=== PATIENT | male | born 1950 | race American Indian/Alaskan Native ===

== ENCOUNTER 2019-02-24 11:59 | Emergency (ER) | payer MEDICARE ==
--- NOTE | 2019-02-24 12:13 | Event Note ---
ED Screening Note Date of service: 02/24/19 Time: 12:11 ED Screening Note: 68 y/o male comes in for "not able to urinate" since 5am. He is followed by a urologist in [place]. This initial assessment/diagnostic orders/clinical plan/treatment(s) is/are subject to change based on patients health status, clinical progression and re- assessment by fellow clinical providers in the ED. Further treatment and workup at subsequent clinical providers discretion. Patient/guardian urged not to elope from the ED as their condition may be serious if not clinically assessed and managed. Initial orders include:
[2019-02-24 13:21] LABS: Eosinophils # (Auto) 0.1 K/mm3 (0.0-0.4); Eosinophils % (Auto) 1.6 % (0.0-4.3); Hematocrit 40.4 % (35.5-45.6); Hemoglobin 13.2 gm/dl (11.8-15.2); Lymphocytes % (Auto) 23.5 % (13.4-35.0); Mean Corpuscular HGB Conc 33 % (32-34); Mean Corpuscular Volume 76 fl (84-94); Monocytes # (Auto) 0.3 K/mm3 (0.0-0.8); Monocytes % (Auto) 6.7 % (0.0-7.3); Platelet Count 225 K/mm3 (140-440); Red Cell Distribution Width 14.9 % (13.2-15.2)
[2019-02-24 13:39] LABS: Alanine Aminotransferase 26 units/L (7-56); Albumin 4.8 g/dL (3.9-5); BUN/Creatinine Ratio 11; Blood Urea Nitrogen 11 mg/dL (9-20); Calcium 9.3 mg/dL (8.4-10.2); Hemolysis Index 7
[2019-02-24 13:50] LABS: Bilirubin,Urine NEG (Negative); Blood,Urine SM (Negative); Color,Urine Yellow (Yellow); Mucus,Urine FEW /HPF; Protein,Urine <15 mg/dL mg/dL (Negative); Urobilinogen,Urine < 2.0 mg/dL (<2.0); WBC,Urine < 1.0 /HPF (0.0-6.0)
--- NOTE | 2019-02-24 14:27 | Emergency Department Report ---
ED Male HPI - General Chief complaint: Urogenital-Male Stated complaint: CANT URINATE Time Seen by Provider: 02/24/19 12:11 Source: patient Mode of arrival: Ambulatory Limitations: No Limitations - History of Present Illness Initial comments: 68-year-old -Finnish male patient with history of BPH complains of sudden onset of urinary retention x 5 AM this morning. He denies dysuria, hematuria, preceding abdominal pain or flank pain, back pain/injury to back, constipation/fecal incontinence, or fever. Patient does follow with Dr. Weiss, urology-has a follow-up in 3 weeks for a recently elevated PSA. However patient does deny a history of prostate cancer. MD Complaint: other -: Sudden Radiation: none Severity scale (0 -10): 10 Quality: aching Consistency: constant Improves with: none Worsens with: none urinary retention. denies: discharge - Related Data Home Medications Medication Instructions Recorded Confirmed Last Taken Aspirin EC 325 mg PO QDAY 06/14/15 06/14/15 06/14/15 05:35 325 mg Saw [place] 1 cap PO DAILY 06/14/15 06/14/15 06/13/15 1 cap Ubidecarenone [Coq-10] 100 mg PO DAILY 06/14/15 06/14/15 06/14/15 100 mg Vit D3-Vit K/Berber[place]/Hops 1 tab PO DAILY 06/14/15 06/14/15 06/13/15 [Ostera Tablet] 1 tab Allergies Allergy/AdvReac Type Severity Reaction Status Date / Time No Known Allergies Allergy Verified 06/14/15 07:11 ED Review of Systems ROS: Stated complaint: CANT URINATE Other details as noted in HPI Comment: All other systems reviewed and negative Genitourinary: as per HPI. denies: frequency, testicular pain, testicular mass ED Past Medical Hx - Past Medical History Previous Medical History?: Yes Hx Hypertension: No Hx Diabetes: No Hx Liver Disease: No Hx Arthritis: Yes - Social History Smoking Status: Never Smoker Substance Use Type: Alcohol - Medications Home Medications: Home Medications Medication Instructions Recorded Confirmed Last Taken Type Aspirin EC 325 mg PO QDAY 06/14/15 06/14/15 06/14/15 05:35 History 325 mg Saw [place] 1 cap PO DAILY 01/29/16 01/29/16 01/28/16 History 1 cap Ubidecarenone [Coq-10] 100 mg PO DAILY 06/14/15 06/14/15 06/14/15 History 100 mg Vit D3-Vit K/[place]/Hops 1 tab PO DAILY 06/14/15 06/14/15 06/13/15 History [Ostera Tablet] 1 tab ED Physical Exam - General Limitations: No Limitations General appearance: alert, in no apparent distress - Head Head exam: Present: atraumatic, normocephalic - Eye Eye exam: Present: normal appearance - Respiratory Respiratory exam: Present: normal lung sounds bilaterally - Cardiovascular Cardiovascular Exam: Present: regular rate, normal rhythm - GI/Abdominal GI/Abdominal exam: Present: soft. Absent: distended, tenderness (no tenderness or pain post garcia insertion ), guarding, rebound, rigid - Extremities Exam Extremities exam: Present: normal inspection - Back Exam Back exam: Present: normal inspection, full ROM. Absent: tenderness, CVA tender ness (L), vertebral tenderness - Neurological Exam Neurological exam: Present: alert, oriented X3 ED Course Vital Signs 02/24/19 12:11 Temperature 97.8 F Pulse Rate 104 H Respiratory 18 Rate Blood Pressure 169/96 O2 Sat by Pulse 99 Oximetry ED Medical Decision Making - Lab Data Result diagrams: 02/24/19 12:51 02/24/19 12:44 Lab Results 02/24/19 02/24/19 02/24/19 Range/Units 12:44 12:51 13:08 WBC 4.3 L (4.5-11.0) K/mm3 RBC 5.30 H (3.65-5.03) M/mm3 Hgb 13.2 (11.8-15.2) gm/dl Hct 40.4 (35.5-45.6) % MCV 76 L (84-94) fl MCH 25 L (28-32) pg MCHC 33 (32-34) % RDW 14.9 (13.2-15.2) % Plt Count 225 (140-440) K/mm3 Lymph % (Auto) 23.5 (13.4-35.0) % [place] % (Auto) 6.7 (0.0-7.3) % Eos % (Auto) 1.6 (0.0-4.3) % Baso % (Auto) 1.0 (0.0-1.8) % Lymph # 1.0 L (1.2-5.4) K/mm3 [place] # 0.3 (0.0-0.8) K/mm3 Eos # 0.1 (0.0-0.4) K/mm3 Baso # 0.0 (0.0-0.1) K/mm3 Seg Neutrophils % 67.2 (40.0-70.0) % Seg Neutrophils # 2.9 (1.8-7.7) K/mm3 Sodium 140 (137-145) mmol/L Potassium 4.5 (3.6-5.0) mmol/L Chloride 101.2 (98-107) mmol/L Carbon Dioxide 24 (22-30) mmol/L Anion Gap 19 mmol/L BUN 11 (9-20) mg/dL Creatinine 1.0 (0.8-1.5) mg/dL Estimated GFR > 60 ml/min BUN/Creatinine Ratio 11 % Glucose 152 H (75-100) mg/dL Calcium 9.3 (8.4-10.2) mg/dL Total Bilirubin 0.40 (0.1-1.2) mg/dL AST 22 (5-40) units/L ALT 26 (7-56) units/L Alkaline Phosphatase 74 (35-129) units/L Total Protein 8.3 H (6.3-8.2) g/dL Albumin 4.8 (3.9-5) g/dL Albumin/Globulin Ratio 1.4 % Urine Color Yellow (Yellow) Urine Turbidity Clear (Clear) Urine pH 5.0 (5.0-7.0) Ur Specific [place] 1.011 (1.003-1.030) Urine Protein <15 mg/dl (Negative) mg/dL Urine Glucose (UA) Neg (Negative) mg/dL Urine Ketones Neg (Negative) mg/dL Urine Blood Sm (Negative) Urine Nitrite Neg (Negative) Urine Bilirubin Neg (Negative) Urine Urobilinogen < 2.0 (<2.0) mg/dL Ur Leukocyte Esterase Neg (Negative) Urine WBC (Auto) < 1.0 (0.0-6.0) /HPF Urine RBC (Auto) 1.0 (0.0-6.0) /HPF Urine Mucus Few /HPF - Medical Decision Making 68-year-old male patient here today with acute onset of urinary retention. He denies prior episodes. Patient does have history of BPH and follows with [facility]. And abdominal discomfort resolved his Garcia catheter was inserted. 500 mL of urine were obtained. CBC WNL, no abnormal kidney function noted on MP, urine does not show signs of infection. Patient to discharge home with Garcia catheter in place and follow up with his urologist tomorrow. Strict return precautions were discussed in detail with patient who states understanding. Critical care attestation.: If time is entered above; I have spent that time in minutes in the direct care of this critically ill patient, excluding procedure time. ED Disposition Clinical Impression: Urinary retention Disposition: DC-01 TO HOME OR SELFCARE Is pt being admited?: No Condition: Stable Instructions: Urinary Retention in Men (ED) Additional Instructions: Please follow up with Dr. Weiss tomorrow.
[2019-02-24 15:19] VITALS: BP 148/84
== END 2019-02-24 15:18 | disposition home or self-care (01) ==
LOC: ED 11:59
DX: N40.0 Benign prostatic hyperplasia without lower urinary tract symptoms (principal); M19.90 Unspecified osteoarthritis, unspecified site; Z79.82 Long term (current) use of aspirin; Z79.899 Other long term (current) drug therapy
CPT/HCPCS: 36415; 51702; 80053; 81001; 85025

== ENCOUNTER 2019-02-24 18:50 | Emergency (ER) | payer MEDICARE ==
--- NOTE | 2019-02-24 19:26 | Event Note ---
ED Screening Note Date of service: 02/24/19 Time: 19:25 ED Screening Note: 68 y/o male comes in for having blood in his [place] that was placed yesterday. This initial assessment/diagnostic orders/clinical plan/treatment(s) is/are subject to change based on patients health status, clinical progression and re- assessment by fellow clinical providers in the ED. Further treatment and workup at subsequent clinical providers discretion. Patient/guardian urged not to elope from the ED as their condition may be serious if not clinically assessed and managed. Initial orders include:
[2019-02-24 19:28] VITALS: BP 125/87
--- NOTE | 2019-02-24 22:13 | Emergency Department Report ---
ED Male HPI - General Chief complaint: Urogenital-Male Stated complaint: BLEEDING Time Seen by Provider: 02/24/19 19:24 Source: patient Mode of arrival: Ambulatory Limitations: No Limitations - History of Present Illness Initial comments: Patient is a 68-year-old -[place] male with a history of chronic BPH and who just had a Garcia catheter placed 6 hours ago after he came to the ED with complaint of acute urinary retention presents to the ED for evaluation of the Garcia catheter which he stated had some blood around the Garcia catheter at the insertion point of the penis. Patient otherwise states that the Garcia catheter is draining normally in today leg back as was expected. Patient denies suprapubic pain, fever, chills, nausea, vomiting, urinary retention or testicular pain. MD Complaint: other (garcia catheter leakage) -: hour(s) (4) Location: penis Radiation: none Severity: mild Severity scale (0 -10): 0 Quality: dull Consistency: intermittent Improves with: none Worsens with: none denies other symptoms, urinary retention, blood in urine. denies: discharge, swelling, mass, rash, dysuria, fever, nausea/vomiting, incontinence - Related Data Home Medications Medication Instructions Recorded Confirmed Last Taken Aspirin EC 325 mg PO QDAY 06/14/15 06/14/15 06/14/15 05:35 325 mg Saw [place] 1 cap PO DAILY 06/14/15 06/14/15 06/13/15 1 cap Ubidecarenone [Coq-10] 100 mg PO DAILY 06/14/15 06/14/15 06/14/15 100 mg Vit D3-Vit K/[place]/Hops 1 tab PO DAILY 06/14/15 06/14/15 06/13/15 [Ostera Tablet] 1 tab Allergies Allergy/AdvReac Type Severity Reaction Status Date / Time No Known Allergies Allergy Verified 06/14/15 07:11 ED Review of Systems ROS: Stated complaint: BLEEDING Other details as noted in HPI Constitutional: denies: chills, fever Eyes: denies: eye pain, eye discharge, vision change ENT: denies: ear pain, throat pain Respiratory: denies: cough, shortness of breath, wheezing Cardiovascular: denies: chest pain, palpitations Endocrine: no symptoms reported Gastrointestinal: denies: abdominal pain, nausea, diarrhea Genitourinary: other (Leaking and bleeding around the Garcia Catheter). denies: urgency, dysuria Musculoskeletal: denies: back pain, joint swelling, arthralgia Skin: denies: rash, lesions Neurological: denies: headache, weakness, paresthesias Psychiatric: denies: anxiety, depression Hematological/Lymphatic: denies: easy bleeding, easy bruising ED Past Medical Hx - Past Medical History Previous Medical History?: Yes Hx Hypertension: No Hx Diabetes: No Hx Liver Disease: No Hx Arthritis: Yes Additional medical history: Enlarged prostate - Surgical History Past Surgical History?: No Additional Surgical History: Rt tendon shoulder, 2011 - Social History Smoking Status: Unknown if ever smoked Substance Use Type: Alcohol - Medications Home Medications: Home Medications Medication Instructions Recorded Confirmed Last Taken Type Aspirin EC 325 mg PO QDAY 06/14/15 06/14/15 06/14/15 05:35 History 325 mg Saw [place] 1 cap PO DAILY 06/14/15 06/14/15 06/13/15 History 1 cap Ubidecarenone [Coq-10] 100 mg PO DAILY 06/14/15 06/14/15 06/14/15 History 100 mg Vit D3-Vit K/[place] 1 tab PO DAILY 06/14/15 06/14/15 06/13/15 History [Ostera Tablet] 1 tab ED Physical Exam - General Limitations: No Limitations General appearance: alert, in no apparent distress - Head Head exam: Present: atraumatic, normocephalic, normal inspection - Eye Eye exam: Present: normal appearance, PERRL, EOMI Pupils: Present: normal accommodation - ENT ENT exam: Present: normal exam, normal orophraynx, mucous membranes moist, TM's normal bilaterally, normal external ear exam - Neck Neck exam: Present: normal inspection, full ROM - Respiratory Respiratory exam: Present: normal lung sounds bilaterally. Absent: respiratory distress, wheezes, rales, stridor, accessory muscle use, decreased breath sounds, prolonged expiratory - Cardiovascular Cardiovascular Exam: Present: normal rhythm, tachycardia, normal heart sounds. Absent: systolic murmur, diastolic murmur, rubs, gallop - GI/Abdominal GI/Abdominal exam: Present: soft, normal bowel sounds. Absent: tenderness, guarding, rebound, hyperactive bowel sounds, hypoactive bowel sounds, organomegaly - Rectal Rectal exam: Present: deferred - exam: Present: normal inspection External exam: Present: normal external exam, other (garcia catheter in place, draining normally) - Extremities Exam Extremities exam: Present: normal inspection, full ROM, normal capillary refill - Back Exam Back exam: Present: normal inspection, full ROM - Neurological Exam Neurological exam: Present: alert, oriented X3, CN II-XII intact, normal gait, reflexes normal - Psychiatric Psychiatric exam: Present: normal affect, normal mood - Skin Skin exam: Present: warm, dry, intact, normal color. Absent: rash ED Course Vital Signs 02/24/19 19:24 Temperature 97.8 F Pulse Rate 109 H Respiratory 18 Rate Blood Pressure 125/87 O2 Sat by Pulse 99 Oximetry - Reevaluation(s) Reevaluation #1: 02/24/19 22:34 This 68 yo AA male with a h/o Chronic BPH and is currently having an indwelling Garcia Catheter in place which was placed about 6 hours ago presented to the ED complaining of leaking urine and bleeding around the Garcia catheter at the insertion point of the penis for 12 hours. Patient otherwise stated that the Bag drains normally. In the ED, patient is alert and oriented 3 and is not in distress. Patient's heart presented to the ED for evaluation of same. In the ED, the Garcia was checked and the drainage is normal with no leakage. There was mild and trace blood around the insertion point of the Garcia of the penis but this wasn't dry clotted blood which were cleaned. There is no sign of bleeding around the urethra and deformity. Patient was observed briefly in the ED and discharged home, and advised to follow-up with the urologist as previously scheduled in the next 3 days. Patient was advised to return to the ED immediately if symptoms get worse. ED Medical Decision Making - Medical Decision Making This 68 yo AA male with a h/o Chronic BPH and is currently having an indwelling Garcia Catheter in place which was placed about 6 hours ago presented to the ED complaining of leaking urine and bleeding around the Garcia catheter at the insertion point of the penis for 12 hours. Patient otherwise stated that the Bag drains normally. In the ED, patient is alert and oriented 3 and is not in distress. Patient's heart presented to the ED for evaluation of same. In the ED, the Garcia was checked and the drainage is normal with no leakage. There was mild and trace blood around the insertion point of the Garcia of the penis but this wasn't dry clotted blood which were cleaned. There is no sign of bleeding around the urethra and deformity. Patient was observed briefly in the ED and discharged home, and advised to follow-up with the urologist as previously scheduled in the next 3 days. Patient was advised to return to the ED immediately if symptoms get worse. - Differential Diagnosis Urinary retention; Malfunctioned Garcia Catheter; Leaking Garcia Catheter Critical care attestation.: If time is entered above; I have spent that time in minutes in the direct care of this critically ill patient, excluding procedure time. ED Disposition Clinical Impression: Garcia catheter problem Qualifiers: Encounter type: initial encounter Qualified Code(s): T83.9XXA - Unspecified complication of genitourinary prosthetic device, implant and graft, initial encounter Malfunction of Garcia catheter Qualifiers: Encounter type: initial encounter Qualified Code(s): T83.011A - Breakdown (mechanical) of indwelling urethral catheter, initial encounter Disposition: TO HOME OR SELFCARE Is pt being admited?: No Does the pt Need Aspirin: No Condition: Stable Instructions: Garcia Catheter Placement and Care (ED), Urinary Leg Bag (GEN) Additional Instructions: Take your regular medications as previously instructed, follow-up with your urologist as previously scheduled. Return to the ED immediately if symptoms get worse. Referrals: PRIMARY CARE, [Referring] - 3-5 Days Time of Disposition: 22:11 Print Language: ISRAELI
== END 2019-02-24 22:22 | disposition home or self-care (01) ==
LOC: ED 18:50
DX: T83.011A Breakdown (mechanical) of indwelling urethral catheter, initial encounter (principal); M19.90 Unspecified osteoarthritis, unspecified site; Y84.8 Other medical procedures as the cause of abnormal reaction of the patient, or of later complication, without mention of misadventure at the time of the procedure; Y92.89 Other specified places as the place of occurrence of the external cause

== ENCOUNTER 2022-02-02 17:10 | Emergency (ER) | payer MEDICARE ==
[2022-02-02] MEDS ORDERED: TETANUS,DIPH,PERTUSS(ACELL) VACCINE 0.5 ML SYRINGE IM ONE (17:15)
[2022-02-02] MEDS ORDERED: ceFAZolin 1 GM VIAL IM ONE (17:15)
[2022-02-02] MEDS ORDERED: HYDROcodone/ACETAMINOPHEN 5-325 MG TAB PO ONE (17:16)
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
[2022-02-02 18:39] LABS: BUN/Creatinine Ratio 16; Blood Urea Nitrogen 16 mg/dL (9-20); Calcium 9.3 mg/dL (8.4-10.2); Hemolysis Index 10
[2022-02-02 19:07] LABS: Hematocrit 37.7 % (35.5-45.6); Hemoglobin 12.6 gm/dl (11.8-15.2); Mean Corpuscular HGB Conc 33 % (32-34); Mean Corpuscular Volume 76 fl (84-94); Platelet Count 231 K/mm3 (140-440); Red Blood Count 4.99 M/mm3 (3.65-5.03); Red Cell Distribution Width 14.5 % (13.2-15.2)
[2022-02-02 19:16] VITALS: BP 114/86
[2022-02-02 20:09] LABS: Anisocytosis RARE; Hypochromasia 1+; Total Cells Counted 100
== END 2022-02-02 22:14 | disposition home or self-care (01) ==
LOC: ED 17:10
DX: S61.231A Puncture wound without foreign body of left index finger without damage to nail, initial encounter (principal); W34.09XA Accidental discharge from other specified firearms, initial encounter; Y93.89 Activity, other specified; Y92.89 Other specified places as the place of occurrence of the external cause; Y99.8 Other external cause status
CPT/HCPCS: 36415; 80048; 85007; 85025; 99283